=== PATIENT | male | born 1990 | race Caucasian/White ===

== ENCOUNTER 2017-02-10 10:48 | Emergency (ER) | payer SELFPAY ==
[2017-02-10 13:22] VITALS: BP 125/74; PULSE 70; RESP 18; TEMP 97.9; O2SAT 98
--- NOTE | 2017-02-10 13:30 | C.PDOC ---
History Of Present Illness 27-year-old male, PMHx includes Asthma, presents to the emergency department w Time Seen by Provider: 02/10/17 11:29 Chief Complaint (Nursing): Medical Clearance Past Medical History Vital Signs: Last Vital Signs Temp 97.9 F 02/10/17 13:20 Pulse 70 02/10/17 13:20 Resp 18 02/10/17 13:20 BP 125/74 02/10/17 13:20 Pulse Ox 98 02/10/17 13:20 - Medical History PMH: Asthma Family History: States: Unknown Family Hx - Social History Hx Alcohol Use: Yes Hx Substance Use: Yes (Marijuana) - Immunization History Hx Influenza Vaccination: No ED Course And Treatment O2 Sat by Pulse Oximetry: 98
--- NOTE | 2017-02-10 13:30 | C.PDOC ---
History Of Present Illness 27-year-old male, PMHx includes Asthma, presents to the emergency department with asthma exacerbation. Patient states he was experiencing wheezing and shortness of breath this morning, that were consistent w/ asthma exacerbation. Patient notes that symptoms used to be more frequent as a child, but does not experience as much anymore. States he used an inhaler w/ resolve. Patient does not have any complaints at this time, states he feels better and just wants to "be checked to make sure everything is okay." Denies nausea/vomiting, fevers, chills, dizziness, headache or any other associated symptoms. No other complaints at this time. Time Seen by Provider: 02/10/17 11:29 Chief Complaint (Nursing): Medical Clearance History Per: Patient History/Exam Limitations: no limitations Onset/Duration Of Symptoms: Hrs Current Symptoms Are (Timing): Better Past Medical History Reviewed: Historical Data, Nursing Documentation, Vital Signs Vital Signs: Last Vital Signs Temp 97.9 F 02/10/17 13:20 Pulse 70 02/10/17 13:20 Resp 18 02/10/17 13:20 BP 125/74 02/10/17 13:20 Pulse Ox 98 02/10/17 13:37 - Medical History PMH: Asthma Family History: States: Unknown Family Hx - Social History Hx Alcohol Use: Yes Hx Substance Use: Yes (Marijuana) - Immunization History Hx Influenza Vaccination: No Review Of Systems Except As Marked, All Systems Reviewed And Found Negative. Constitutional: Negative for: Fever Cardiovascular: Negative for: Chest Pain, Palpitations Respiratory: Positive for: Shortness of Breath, Wheezing Gastrointestinal: Negative for: Vomiting Musculoskeletal: Negative for: Back Pain Physical Exam - Physical Exam Appears: Non-toxic, No Acute Distress Skin: Warm, Dry, No Rash Eye(s): bilateral: Normal Inspection, PERRL Nose: Normal Oral Mucosa: Moist Lips: Normal Appearing Neck: Normal ROM Cardiovascular: Rhythm Regular Respiratory: Normal Breath Sounds, No Accessory Muscle Use Extremity: Normal ROM Neurological/Psych: Oriented x3, Normal Speech ED Course And Treatment O2 Sat by Pulse Oximetry: 98 Medical Decision Making Medical Decision Making: On reassessment, patient is resting comfortably with no wheezing, chest pain, or retractions.. Patient is alert and oriented x 3. Patient was advised to follow up with physician/clinic in 1-2 days and return to ED if symptoms worsen or persist. Disposition - Disposition Disposition: HOME/ ROUTINE Disposition Time: 13:28 Condition: IMPROVED Additional Instructions: Follow up with PMD/Clinic within 1-2 days. Return to ED of feel worse. Prescriptions: Albuterol Sulfate [Proair Hfa] 1 puff IH Q6 PRN #1 inh PRN Reason: Cough Instructions: Asthma (ED) Forms: Work Excuse - Clinical Impression Clinical Impression: Medical assessment - Scribe Statement The provider has reviewed the documentation as recorded by the Cassandra Perry All medical record entries made by the Snehaibe were at my direction and personally dictated by me. I have reviewed the chart and agree that the record accurately reflects my personal performance of the history, physical exam, medical decision making, and the department course for this patient. I have also personally directed, reviewed, and agree with the discharge instructions and disposition.
== END 2017-02-10 13:45 | disposition home or self-care (01) ==
LOC: C.ER 10:48
DX: Z00.00 Encounter for general adult medical examination without abnormal findings (principal)

== ENCOUNTER 2019-01-02 12:20 | Emergency (ER) | payer SELFPAY ==
[2019-01-02 13:00] VITALS: BP 111/69; PULSE 72; RESP 16; TEMP 99.1; O2SAT 99
--- NOTE | 2019-01-02 13:45 | RAD ---
Date of service: 01/02/2019 PROCEDURE: Cervical Spine Radiographs. HISTORY: Pain. COMPARISON: None available. FINDINGS: BONES: There is normal alignment of the cervical vertebral bodies. There is normal cervical lordosis. Vertebral height is normal. Bone mineralization is normal. There is no acute fracture or traumatic anterior listhesis. The craniocervical junction is normal. The atlantoaxial joint normal. DISC SPACES: Normal. SOFT TISSUES: Normal. No prevertebral soft tissue swelling. OTHER FINDINGS: None. IMPRESSION: No acute fracture or dislocation. No significant degenerative disc disease.
--- NOTE | 2019-01-02 14:16 | C.PDOC ---
History Of Present Illness 28 y/o male presents to the ED complaining of right-sided neck pain for the past 2-3 days, which he states causes pain to radiate down the right shoulder and arm. Patient reports he tried to crack his neck and he felt a snap prior to onset of pain. Otherwise he denies any weakness or numbness. No bowel/bladder incontinence, headache, visual disturbance, dizziness, fevers or other complaints. Time Seen by Provider: 01/02/19 12:54 Chief Complaint (Nursing): Upper Extremity Problem/Injury History Per: Patient History/Exam Limitations: no limitations Onset/Duration Of Symptoms: Days Current Symptoms Are (Timing): Still Present Associated Symptoms: None Exacerbating Factor(s): Turning Past Medical History Reviewed: Historical Data, Nursing Documentation, Vital Signs Vital Signs: Last Vital Signs Temp 99.1 F 01/02/19 12:57 Pulse 72 01/02/19 12:57 Resp 16 01/02/19 12:57 BP 111/69 01/02/19 12:57 Pulse Ox 99 01/02/19 12:57 - Medical History PMH: Asthma Family History: States: Unknown Family Hx - Social History Hx Alcohol Use: Yes Hx Substance Use: Yes (Marijuana) - Immunization History Hx Influenza Vaccination: No Review Of Systems Except As Marked, All Systems Reviewed And Found Negative. Constitutional: Negative for: Fever, Chills Eyes: Negative for: Vision Change Gastrointestinal: Negative for: Nausea, Vomiting Genitourinary: Negative for: Dysuria, Incontinence Musculoskeletal: Positive for: Neck Pain (radiating down right arm) Skin: Negative for: Rash Neurological: Negative for: Weakness, Numbness, Headache, Dizziness Physical Exam - Physical Exam Appears: Non-toxic, No Acute Distress Skin: Normal Color, Warm, No Rash Head: Atraumatic, Normacephalic Eye(s): bilateral: Normal Inspection, PERRL, EOMI Ear(s): Bilateral: Normal Oral Mucosa: Moist Neck: Decreased ROM (Pain on rotation toward the right), No Midline Cervical Tenderness, Paracervical Tenderness (Right-sided), Supple Chest: Symmetrical, No Tenderness Cardiovascular: Rhythm Regular, No Friction Rub, No Murmur Respiratory: Normal Breath Sounds, No Accessory Muscle Use, Other (Speaking in full sentences) Back: Normal Inspection, No CVA Tenderness, No Vertebral Tenderness, No Paraspinal Tenderness Extremity: Normal ROM (with full AROM of bilateral arms), No Tenderness, Capillary Refill (< 2 sec), No Deformity Pulses: Left Radial: Normal, Right Radial: Normal Neurological/Psych: Oriented x3, Normal Speech, Normal Cranial Nerves, Normal Motor, Normal Sensation, Other (No focal deficit) Gait: Steady ED Course And Treatment O2 Sat by Pulse Oximetry: 99 (RA) Pulse Ox Interpretation: Normal - Other Rad XR C-Spine X-Ray: Read By Radiologist Interpretation: Accession No. : [id number]. Patient Name / ID : KRISTINA CANO / [id number]. Exam Date : 01/02/2019 13:23:31 ( Approved ). Study Comment : Sex / Age : M / 28Y. Creator : phylicia rios. Dictator : Yasmeen Andrews MD. Cardiac Exercise Specialist : Drill Bit Sharpener : Yasmeen Andrews MD. Approver2 : Report Date : 01/02/2019 13:30:42. My Comment : . Date of service: 01/02/2019. PROCEDURE: Cervical Spine Radiographs. HISTORY: Pain. COMPARISON: None available. FINDINGS: BONES: There is normal alignment of the cervical vertebral bodies. There is normal cervical lordosis. Vertebral height is normal. Bone mineralization is normal. There is no acute fracture or traumatic anterior listhesis. The craniocervical junction is normal. The atlantoaxial joint normal. DISC SPACES: Normal. SOFT TISSUES: Normal. No prevertebral soft tissue swelling. OTHER FINDINGS: None. IMPRESSION: No acute fracture or dislocation. No significant degenerative disc disease. Medical Decision Making Medical Decision Making: Impression: Neck Pain Plan: - C-spine x-ray - 30 mg IM Toradol - 40 mg PO Prednisone - 5 mg PO Valium - Reassess Imaging reviewed, no acute findings. On re-exam, the patient reports improvement of symptoms. Lungs are CTA, heart is RRR, abdomen is soft, non-tender and tolerating PO well. Pt is ambulatory in the ED with steady gait. Patient is stable for discharge home. Provided with RX for pain medication. Advised to follow up with PMD or return if worse. Disposition - Disposition Referrals: Jon Fields MD [Non-Staff] - Disposition: HOME/ ROUTINE Disposition Time: 14:26 Condition: GOOD Additional Instructions: Follow up with the medical doctor within 1-2 days. Return if worsened. Prescriptions: Diazepam [Valium] 2 mg PO TID #21 tab Lidocaine 5% [Lidoderm] 1 each TP DAILY #10 patch Naproxen [Naprosyn] 500 mg PO BID #20 tab Instructions: Radiculopathy (DC), Cervical Muscle Strain (DC) Forms: [facility] [facility] (Slovak), Work Excuse - Clinical Impression Clinical Impression: Cervical radiculopathy - PA / SENIOR STORAGE ADMINISTRATOR / Resident Statement MD/DO has reviewed & agrees with the documentation as recorded. - Scribe Statement The provider has reviewed the documentation as recorded by the Scribshayna Zee All medical record entries made by the Snehaibshayna were at my direction and personally dictated by me. I have reviewed the chart and agree that the record accurately reflects my personal performance of the history, physical exam, medical decision making, and the department course for this patient. I have also personally directed, reviewed, and agree with the discharge instructions and disposition.
== END 2019-01-02 14:35 | disposition home or self-care (01) ==
LOC: C.ER 12:20
DX: M54.12 Radiculopathy, cervical region (principal)
CPT/HCPCS: 72040; 96372; 99284; J1885